=== PATIENT | female | born 1990 | race Caucasian/White ===

== ENCOUNTER 2017-01-03 05:49 | Emergency (ER) | payer MEDICAID, OTHER ==
[~2017-01-03] VITALS: Ht 167.6 cm; Wt 88.5 kg
[~2017-01-03 05:49] MED LIST: AMO500 PO; NITR-58 PO; PREN-29 PO
[2017-01-03 05:51] VITALS: Ht 167.6 cm; Wt 88.5 kg
[2017-01-03] MEDS ORDERED: HC1C30 TOP (06:26)
[2017-01-03] MEDS ORDERED: IBUP-1542 PO (06:26)
[2017-01-03] MEDS ORDERED: IBUPROFEN 800 MG TAB PO ONE (06:30)
--- NOTE | 2017-01-03 07:05 | RADRPT ---
PROCEDURE: XR Ankle. CLINICAL INDICATION: Right ankle pain. TECHNIQUE: Three views of the right ankle were performed. COMPARISON: None. FINDINGS: No acute fracture or dislocation is seen. The ankle mortise is symmetric. No radiopaque foreign body is identified. Mild soft tissue swelling is noted in the lateral aspect of the ankle. IMPRESSION: 1. No acute fracture or dislocation. 2. Mild soft tissue swelling is noted in the lateral aspect of the ankle. RPTAT: PP .Kris Polk MD, Date Time Electronically viewed and signed by .Kris Polk MD, on 01/03/2017 07:04 .N/
--- NOTE | 2017-01-03 08:00 | ERD ---
ER Documentation Chief Complaint Date/Time DATE: 01/03/17 TIME: 07:58 Chief Complaint twisted right ankle 2 days ago pain and swelling, rashes right arm HPI Patient is a 26-year-old female with no medical problems who presents with ankle pain. She says that she twisted her ankle on Monday. She had swelling which has improved but the ankle still swollen. She tried ibuprofen but was still having pain so she came to the emergency department. She also tried tightening her boot around the ankle. She also has a rash to her arms bilaterally which is itchy. She does not currently have a primary doctor. Upon review of old medical records the patient has 5 visits to the ER for various complaints. ROS All systems reviewed and are negative except as per history of present illness. Medications Home Meds Active Scripts Hydrocortisone* Topical (Hydrocortisone* Topical) 1%-28.35 Gm Cream..g., 1 APPLIC TOP Q6 Y for ITCHING, #1 TUB Prov:HUSSEIN ORTEGA MD 01/03/17 Ibuprofen* (Motrin*) 600 Mg Tab, 600 MG PO Q8, #30 TAB Prov:HUSSEIN ORTEGA MD 01/03/17 Amoxicillin* (Amoxicillin*) 500 Mg Cap, 500 MG PO BID for 7 Days, CAP Prov:BRENDA DAMON 01/26/15 Reported Medications Nitrofurantoin Monohyd Macrocr* (Macrobid*) 100 Mg Capsr, 100 MG PO BID, CAP 01/06/15 Vit-Fe Fumarate-FA* (Loc Tablet*) 1 Tab Tablet, 1 TAB PO DAILY, TAB 01/06/15 Allergies Allergies: Coded Allergies: No Known Allergy (Unverified , 10/17/14) PMhx/Soc Medical and Surgical Hx: pt denies Medical Hx History of Surgery: No (tonsillectomy) Anesthesia Reaction: No Hx Neurological Disorder: No Hx Respiratory Disorders: No Hx Cardiac Disorders: No Hx Psychiatric Problems: No Hx Miscellaneous Medical Probl: No Hx Alcohol Use: No Hx Substance Use: No Hx Tobacco Use: No Smoking Status: Never smoker FmHx Family History: diabetes Physical Exam Vitals Vital Signs Date Time Temp Pulse Resp B/P Pulse Ox O2 Delivery O2 Flow Rate FiO2 01/03/17 05:51 97.8 60 20 122/74 100 Physical Exam Const: No acute distress Head: Atraumatic Eyes: Normal Conjunctiva ENT: Normal External Ears, Nose and Mouth. Neck: Full range of motion..~ No meningismus. Resp: Clear to auscultation bilaterally Cardio: Regular rate and rhythm, no murmurs Abd: Soft, non tender, non distended. Normal bowel sounds Skin: Urticarial wheals to the arms bilaterally which blanches to palpation Back: No midline or flank tenderness Ext: Swelling over the right deltoid ligament of the ankle, no obvious deformity noted Neur: Awake and alert Psych: Normal Mood and Affect Results 24 hrs Current Medications Medications (Trade) Dose Ordered Sig/Rachana Route PRN Reason Start Time Stop Time Status Last Admin Dose Admin Ibuprofen (Motrin) 800 mg ONCE ONCE PO 01/03/17 06:30 01/03/17 06:31 DC 01/03/17 06:30 Procedures/MDM Ankle x-ray negative for fracture or dislocation per radiology. Splint Note Type: Silvino wrap Location: Right ankle Indication: Ankle sprain Splint Assessment: Neurovascularly intact post splint placement with good fit. Patient is a 26-year-old female who presents with right ankle swelling and pain. X-ray was negative for fracture or dislocation. The patient was given Silvino wrap as a believe she has an ankle sprain. The patient will be discharged home and can take ibuprofen as needed for pain and inflammation. She can return for any worsening symptoms. Departure Diagnosis: Primary Impression: Ankle sprain Encounter type: initial encounter Involved ligament of ankle: deltoid ligament Laterality: right Qualified Code: S93.421A - Sprain of deltoid ligament of right ankle, initial encounter Additional Impression: Rash Condition: Fair Patient Instructions: Treating Ankle Sprains, Self-Care for Skin Rashes Referrals: [facility] YOU HAVE RECEIVED A MEDICAL SCREENING EXAM AND THE RESULTS INDICATE THAT YOU DO NOT HAVE A CONDITION THAT REQUIRES URGENT TREATMENT IN THE EMERGENCY DEPARTMENT. FURTHER EVALUATION AND TREATMENT OF YOUR CONDITION CAN WAIT UNTIL YOU ARE SEEN IN YOUR DOCTORS OFFICE WITHIN THE NEXT 1-2 DAYS. IT IS YOUR RESPONSIBILITY TO MAKE AN APPOINTMENT FOR FOLOW-UP CARE. IF YOU HAVE A PRIMARY DOCTOR --you should call your primary doctor and schedule an appointment IF YOU DO NOT HAVE A PRIMARY DOCTOR YOU CAN CALL OUR PHYSICIAN REFERRAL HOTLINE AT IF YOU CAN NOT AFFORD TO SEE A PHYSICIAN YOU CAN CHOSE FROM THE FOLLOWING [facility] [address] [facility] [address] [facility] [address] [facility] [address] [facility] [address] [facility]. [facility]. [address] Additional Instructions: Call your primary care doctor TOMORROW for an appointment during the next 1-2 days.See the doctor sooner or return here if your condition worsens before your appointment time. HUSSEIN ORTEGA MD Jan 03, 2017 08:00
== END 2017-01-03 07:19 | disposition home or self-care (01) ==
LOC: FTE 05:49
DX: S93.421A Sprain of deltoid ligament of right ankle, initial encounter (principal); R21 Rash and other nonspecific skin eruption; X58.XXXA Exposure to other specified factors, initial encounter; Y92.9 Unspecified place or not applicable
CPT/HCPCS: 73610; Z7502; Z7610

== ENCOUNTER 2018-09-14 19:50 | Outpatient (CLI) | payer OTHER ==
[~2018-09-14] VITALS: Ht 160 cm; Wt 97.7 kg
[~2018-09-14 19:50] MED LIST changes: -AMO500 PO; +AMOX500C2 PO; +HC1C30 TOP; +IBUP-1542 PO
[2018-09-14 20:27] VITALS: BP 117/63; PULSE 74; RESP 16; Ht 160 cm; Wt 97.7 kg
--- NOTE | 2018-09-14 23:32 | TRIAGE ---
OB Triage Datetime Report Generated by CPN: 09/14/2018 23:32 Datetime: 09/14/2018 22:15 Contraction Comments: TOCO REMOVED PER MD ORDER Comments: US REMOVED PER MD ORDER Datetime: 09/14/2018 22:00 Labor Evaluation Frequency: NONE Monitor Mode: External Resting Tone [place]: Relaxed Heart Rate FHR Baseline Rate: 145 Monitor Mode: External US Variability: Moderate 6-25 bpm Accelerations: 15X15 Decelerations: None Category: Category I Comments: SOME LOSS OF CONTACT DUE TO GA AND PT LARGE BMI Datetime: 09/14/2018 20:59 Labor Evaluation Frequency: NONE Monitor Mode: External Resting Tone [place]: Relaxed Heart Rate FHR Baseline Rate: 145 Monitor Mode: External US Variability: Moderate 6-25 bpm Accelerations: 10X10 Decelerations: None Category: Category I Comments: SOME LOSS OF CONTACT DUE TO GA AND PT LARGE BMI Datetime: 09/14/2018 20:30 Stage of : OB Triage Assessment Type: Triage Maternal Assessment Level of Consciousness: Fully Conscious DTR's/Clonus: DTRs 2+; No Clonus Headache: Denies Blurred Vision: No Respiratory Effort: Unlabored; Regular Rhythm; Equal Expansion Breath Sounds, Left: Clear and Equal Breath Sounds, Right: Clear and Equal Nausea/Vomiting: Denies RUQ Epigastric Pain: Denies Lower Extremities Edema: None Degree: None Upper Extremities Edema: None Degree: None Facial Edema: None Temperature Route: Oral Fall Risk Assessment History of Falling: (0) No Secondary Diagnosis: (0) No Ambulatory Aid: (0) Bedrest/Nurse Assist IV Therapy: (0) No Gait: (0) Normal/Bedrest/Immobile Mental Status: (0) Oriented to Own Ability Fall Score: 0 Fall Risk Score Definition: No Risk: No action required Pain Assessment Pain Scale: 7 Pain Presence: Constant Pain Type: Pressure Pain Location: Abdomen Pain Goal: 3 Vaginal Exam Membrane Status: Intact Datetime: 09/14/2018 20:28 Time of Arrival: 09/14/2018 19:42 EGA: 27.0 Arrived By: Ambulatory Arrived From: Emergency Dept Chief Complaint: PT C/O PELVIC PAIN SINCE THIS AM AND POSSIBLE UTI Movement: Present Contractions: Denies/Absent Rupture of Membranes: Denies Vaginal Bleeding: None Vaginal Discharge: Denies Recent Sexual Intercouse: Denies Abdominal Trauma: Not Applicable Patient Complaints: Urinary Frequency; Pain on Urination; Other Initial Plan: EFM Datetime: 09/14/2018 20:09 Contraction Comments: TOCO APPLIED Comments: US APPLIED
--- NOTE | 2018-09-15 01:09 | PN ---
Triage Information Date/Time September 15, 2018 Reason for visit: Abd/pelvic pain Weeks of Gestation 27 weeks /Para 3 para 2 Diabetes: none Hypertention: none Additional information 28-year-old with IUP at 27 weeks presented with complaint of pelvic pressure and lower abdominal pain as well as some vaginal discharge. She also reports lower abdominal pain when she walks or moves or during sitting. She denies any vaginal bleeding or uterine contractions. Patient had a history of Objective Vital Signs Date Temp Pulse Resp B/P (MAP) Pulse Ox O2 O2 Flow FiO2 Time Delivery Rate 09/14/18 98.0 74 16 117/63 Room Air 20:27 (81) Heart Rate: 130's Heart Rate Comments Category 1 and appropriate for gestational age Contractions: None Exam General appearance: Alert and oriented x4 does not appear to be in any acute distress Abdomen: Soft, gravid, fundal height consider gestational age, no tenderness, no redness, no guarding, no rigidity Extremities: No calf tenderness, no click, 1+ bilateral symmetric edema External genitalia: Evidence of vulvar and labial varicosity more the left side than right. Speculum examination: Negative pooling, negative R OM. Cervix appears closed and long RN tests: Negative Results/Medications Result Diagram: 09/14/182112 Results 24 hrs Laboratory Tests Test 09/14/18 20:30 09/14/18 21:13 09/14/18 22:13 Urine Color YELLOW Urine Clarity CLOUDY A Urine pH 6.0 Urine Specific [place] 1.025 Urine Ketones NEGATIVE Urine Nitrite NEGATIVE Urine Bilirubin NEGATIVE Urine Urobilinogen NEGATIVE Urine Leukocyte Esterase 2+ H Urine Microscopic RBC 26 H Urine Microscopic WBC 9 H Urine Squamous Epithelial Cells FEW Urine Calcium Oxalate Crystals MODERATE Urine Bacteria FEW A Urine Mucus FEW A Urine Hemoglobin 1+ H Urine Glucose NEGATIVE Urine Total Protein NEGATIVE White Blood Count 9.0 Red Blood Count 4.27 Hemoglobin 12.0 Hematocrit 36.8 L Mean Corpuscular Volume 86.2 Mean Corpuscular Hemoglobin 28.1 L Mean Corpuscular Hemoglobin Concent 32.6 Red Cell Distribution Width 13.3 Platelet Count 268 Mean Platelet Volume 9.5 Immature Granulocytes % 0.700 H Neutrophils % 62.3 Lymphocytes % 26.2 Monocytes % 7.3 Eosinophils % 2.9 Basophils % 0.6 Nucleated Red Blood Cells % 0.0 Immature Granulocytes # 0.060 H Neutrophils # 5.6 Lymphocytes # 2.4 Monocytes # 0.7 Eosinophils # 0.3 Basophils # 0.1 Nucleated Red Blood Cells # 0.0 Membranes Rupture NEGATIVE Imaging Results PROCEDURE: US OB. CLINICAL INDICATION: labor TECHNIQUE: Pelvic ultrasound performed for biophysical profile. COMPARISON: No relevant exams available FINDINGS: Single intrauterine gestation present with heart rate at 142 beats per minute. Presentation is breech. Placenta is fundal, grade 1. Biophysical profile score is 8/8 (breathing=2, movement=2, tone =2, fluid volume=2). Amniotic fluid volume is within normal limits, with MVP = 10.7 cm. The closed cervix has a length of 3.1 cm RPTAT:LOAN IMPRESSION: Biophysical profile score 8/8. Closed cervical length measures 3.1 cm. Disposition: Discharge Assessment/Plan IUP at 27 weeks Lower abdominal pain and pelvic pressure, increased with moving and activity, symptoms consistent with musculoskeletal pain No evidence of PPROM or labor testing reassuring and appropriate for gestational age Patient advised to use abdominal binder and have intermittent rest UA questionable for UTI. Will treat with antibiotics. Macrobid Rx twice daily for 7 days provided to the patient Adequate hydration discussed with patient Urine was sent for culture and sensitivity Patient have a follow-up in 3 days in the office for the results and for follow- up with her primary OB office Strict labor precautions kick count adequate rest, hydration discussed with patient. Patient verbalized understanding. All questions were answered to patient's best satisfaction Advised to return to triage as needed any above symptoms or as needed JAMAL WRIGHT MD Sep 15, 2018 01:09
== END 2018-09-14 23:14 | disposition home or self-care (01) ==
LOC: OBT 19:50 → L-D 19:51 → OBT 23:14
PROVIDERS: ATTEND Obstetrics & Gynecology
DX: O26.892 Other specified pregnancy related conditions, second trimester (principal); Z3A.27 27 weeks gestation of pregnancy; R10.2 Pelvic and perineal pain
CPT/HCPCS: 76817; 76818; 81001; 84112; 85025; 87086; Z7500; G0463

== ENCOUNTER 2018-11-06 17:54 | Inpatient (IN) | payer OTHER ==
[~2018-11-06] VITALS: Ht 157.5 cm; Wt 98.3 kg
[~2018-11-06 17:54] MED LIST changes: -AMOX500C2 PO; -HC1C30 TOP; -IBUP-1542 PO
[2018-11-06 18:03] VITALS: Ht 157.5 cm; Wt 98.3 kg
--- NOTE | 2018-11-06 20:04 | HP ---
Date/Time of Note Date/Time of Note DATE: 11/06/18 TIME: 20:02 OB - History Hx of Present Chief Complaint: pelvic pain Estimated Due Date: Dec 14, 2018 : 3 Para: 2 Spontaneous : 0 Therapeutic : 0 Care: Good Care Ultrasounds: Normal mid trimester US Obstetrical Complications: Gestational Diabetes Medical Complications: None Past Family/Social History * Past Medical, Surgical, Family and Obstetric Histories reviewed from chart. GBS Status: Unknown OB Admission Exam Physical Exam HEENT: WNL Heart: Rhythm Normal Lungs: Clear, Equal Abdomen: WNL Extremities: Normal Reflexes: Normal Cervical Dilatation: 2cm Effacement: 75% Station: -1 Membranes: Intact Heart Rate: 120's Accelerations: Accelerations Present Decelerations: No Decelerations Varibility: Moderate Last 72 hours Lab Results CBC & BMP 11/06/18 19:23 OB Assessment/Plan Reason for admission: labor Plan: Other Other plan: IV magnesium sulfate IM betamethasone Sliding scale insulin coverage as needed WHITNEY RODRIGUEZ MD November 06, 2018 20:04
[2018-11-06] MEDS ORDERED: MAGNESIUM SULFATE 4 GM/100 ML 100 ML IV ONE (20:30)
[2018-11-06] MEDS: LACTATED RINGER'S 1,000 ML IV SCH (20:43)
[2018-11-06] MEDS: BETAMET NA PHOS/AC(6 MG/ML) 2 ML INJ SYG IM SCH (21:05)
[2018-11-06] MEDS: MAGNESIUM SULFATE 20 GM/500 ML 500 ML IV SCH (21:14)
[2018-11-07] MEDS ORDERED: GLUCOSE GEL 15 GRAM TUBE BUCCAL PRN (02:30)
[2018-11-07] MEDS ORDERED: DEXTROSE 50% 50 ML SYRINGE IV PRN ×2 (02:30)
[2018-11-07] MEDS ORDERED: GLUCOSE GEL 15 GRAM TUBE PO PRN ×2 (02:30)
[2018-11-07] MEDS: INSULIN ASPART [NOVOLOG] 3 ML PEN SC SCH ×3 (02:30→17:35)
[2018-11-07] MEDS ORDERED: GLUCAGON 1 MG INJ IM PRN (02:30)
[2018-11-07] MEDS: LACTATED RINGER'S 1,000 ML IV SCH ×2 (06:02→19:28)
[2018-11-07] MEDS: MAGNESIUM SULFATE 20 GM/500 ML 500 ML IV SCH ×2 (07:28→17:38)
[2018-11-07] MEDS: ACCU-CHEK XX SCH ×4 (08:06→21:50)
[2018-11-07] MEDS: PRENATAL VITAMIN PO SCH (09:11)
--- NOTE | 2018-11-07 09:44 | QN ---
Documentation Comment No complaint. Patient feels better. Afebrile VSS Strip Reactive Continue with present care. WHITNEY RODRIGUEZ MD November 07, 2018 09:44
[2018-11-07] MEDS: BETAMET NA PHOS/AC(6 MG/ML) 2 ML INJ SYG IM SCH (21:06)
[2018-11-08] MEDS: MAGNESIUM SULFATE 20 GM/500 ML 500 ML IV SCH ×3 (01:51→23:59)
[2018-11-08] MEDS: ACCU-CHEK XX SCH ×4 (06:10→23:56)
[2018-11-08] MEDS: PRENATAL VITAMIN PO SCH (09:45)
[2018-11-08] MEDS: LACTATED RINGER'S 1,000 ML IV SCH ×2 (09:46→21:51)
--- NOTE | 2018-11-08 12:46 | PN ---
DATE: 11/07/2018 The patient is 34 weeks and 5 days, presented with labor on magnesium sulfate currently, rece ived first dose of betamethasone, receiving the second dose today. Cervical length is between 2 to 3 cm digitally. She has GDM with diet control. My recommendation is to continue with the magnesium s ulfate 12 hours after the second dose of betamethasone, then stop and within few hours, check the cer vix. If there is no change, the patient can be discharged home with labor precautions. Dictated By: CARTER LUTHER MD ST/NTS Conf#: [id number] DID#: [id number] CC: WHITNEY RODRIGUEZ MD;*EndCC*
[2018-11-08] MEDS: INSULIN ASPART [NOVOLOG] 3 ML PEN SC SCH ×2 (19:56→20:02)
--- NOTE | 2018-11-08 22:20 | QN ---
Documentation Comment No complaint Afebrile VSS Strip Reactive D/C magnesium sulfate in AM. WHITNEY RODRIGUEZ MD November 08, 2018 22:20
--- NOTE | 2018-11-09 05:45 | CONS ---
DATE OF ADMISSION: 11/06/2018 DATE OF CONSULTATION: 11/08/2018 Prior to this, I saw the patient today. She is currently stable. Dictated By: CARTER LUTHER MD ST/NTS Conf#: [id number] DID#: [id number] CC: WHITNEY RODRIGUEZ MD;*End*
--- NOTE | 2018-11-09 06:58 | CONS ---
DATE OF ADMISSION: 11/06/2018 DATE OF CONSULTATION: 11/08/2018 HISTORY OF PRESENT ILLNESS: The patient is IUP at 34 weeks and 6 days, presented with complaint of a bdominal pain. Per Dr. Rodriguez, she is about 2 cm dilated, on magnesium sulfate, received the second dose of betamethasone. She is feeling less pressure overall and that was the reason she came in. H er OB history is significant for pre-term delivery at 31 weeks and her first baby was a full term. Vital signs are stable. Physical exam deferred. heart tones are reassuring, and some irritabi lity and occasional contractions. IMPRESSION: IUP at 34 weeks and 6 days with pre-term labor on magnesium sulfate and status post beta methasone. History of a pre-term delivery at 31 weeks. She is currently 2 cm dilated. RECOMMENDATIONS: I do recommend for the patient to be in-house managed at least until 36 weeks with magnesium and discontinue 24 hours after the second dose of betamethasone, then up to 36 weeks Procar rosa is an option if the blood pressures allow, 20 mg every 6 hours. Dictated By: CARTER LUTHER MD ST/NTS Conf#: [id number] DID#: [id number] CC: WHITNEY RODRIGUEZ MD;*End*
[2018-11-09] MEDS: INSULIN ASPART [NOVOLOG] 3 ML PEN SC SCH ×3 (07:35→17:35)
[2018-11-09] MEDS: ACCU-CHEK XX SCH ×4 (08:00→19:35)
[2018-11-09] MEDS: NIFEdipine 10 MG CAP PO SCH ×3 (08:20→19:27)
[2018-11-09] MEDS: PRENATAL VITAMIN PO SCH (08:21)
[2018-11-09] MEDS: LACTATED RINGER'S 1,000 ML IV SCH (11:22)
[2018-11-09] MEDS ORDERED: ACETAMINOPHEN 500 MG TAB PO STA (11:51)
--- NOTE | 2018-11-09 14:14 | QN ---
Documentation Comment No complaint Afebrile VSS Strip Reactive Cervix 2 cm, no cervical change D/C magnesium sulfate PO nifedipine WHITNEY RODRIGUEZ MD November 09, 2018 14:14
--- NOTE | 2018-11-09 19:45 | QN ---
Documentation Comment requested to do VE by her OB since RN VE is showing she seems to be in labor VE 2-3 50/-2 which is more likely comparable with Her OB A IUP 35w with x1 previous C/S r/o PTL on procardia Hx of PTB at 31w P expectant management JITENDRA BALDERAS MD November 09, 2018 19:45
[2018-11-10] MEDS: LACTATED RINGER'S 1,000 ML IV SCH (00:10)
[2018-11-10] MEDS: NIFEdipine 10 MG CAP PO SCH ×3 (01:52→14:56)
[2018-11-10] MEDS: INSULIN ASPART [NOVOLOG] 3 ML PEN SC SCH ×2 (07:35→11:30)
[2018-11-10] MEDS: ACCU-CHEK XX SCH ×3 (08:20→13:30)
[2018-11-10] MEDS: PRENATAL VITAMIN PO SCH (09:08)
--- NOTE | 2018-11-10 14:25 | DS ---
Date/Time of Note Date/Time of Note DATE: 11/10/18 TIME: 14:25 Obstetrical Discharge Record Final Diagnosis Final Diagnosis: not delivered Complications Gestational Diabetes Tocolytics: Magnesium Sulfate Condition on Discharge Physical Assessment Voiding: Yes Bowel Movement: Yes Calf Tenderness: No Patient Condition: Stable WHITNEY RODRIGUEZ MD November 10, 2018 14:25
== END 2018-11-10 15:05 | disposition home or self-care (01) | DRG 833 ==
LOC: OBT 17:54 → L-D 17:55 → OBT 19:54 → L-D 19:54
PROVIDERS: ADMIT Obstetrics & Gynecology; ATTEND Obstetrics & Gynecology
DX: O60.03 Preterm labor without delivery, third trimester (principal); O24.410 Gestational diabetes mellitus in pregnancy, diet controlled; O09.213 Supervision of pregnancy with history of pre-term labor, third trimester; Z3A.34 34 weeks gestation of pregnancy
CPT/HCPCS: 76815; 76818; 81001; 82947; 82962; 83735; 84112; 85025; 85610; 85730; 86592; 86850; 86900; 86901; 87086; G0463; J0702; J1815; J3475; J7120

== ENCOUNTER 2018-11-20 04:57 | Inpatient (IN) | payer OTHER ==
[~2018-11-20] VITALS: Ht 157.5 cm; Wt 98.4 kg
[~2018-11-20 04:57] MED LIST changes: -NITR-58 PO
[2018-11-20 05:04] VITALS: Ht 157.5 cm; Wt 98.4 kg
[2018-11-20] MEDS ORDERED: NIFE10CA PO (05:05)
[2018-11-20] MEDS ORDERED: LIDOCAINE 1% (MPF) 30 ML INJ ONE (05:24)
[2018-11-20] MEDS ORDERED: OXYTOCIN 30 UNITS/LR 1,000 ML IV ONE (05:24)
[2018-11-20] MEDS ORDERED: LACTATED RINGER'S 1,000 ML IV SCH (05:26)
[2018-11-20] MEDS ORDERED: AMPICILLIN 2 GM/NS (PMX) 100 ML ONE (05:28)
[2018-11-20] MEDS ORDERED: AMPICILLIN 2 GM/NS (PMX) 100 ML IV ONE (05:30)
[2018-11-20] MEDS ORDERED: METHYLERGONOVINE 0.2 MG INJ IM PRN ×2 (05:30→07:00)
[2018-11-20] MEDS ORDERED: CARBOPROST 250 MCG INJ IM PRN ×2 (05:30→07:00)
[2018-11-20] MEDS ORDERED: LIDOCAINE 1% (MPF) 30 ML INJ INJ PRN (05:30)
[2018-11-20] MEDS ORDERED: OXYTOCIN 30 UNITS/LR 500 ML IV SCH ×2 (05:30)
[2018-11-20] MEDS ORDERED: OXYTOCIN 30 UNITS/LR 500 ML IV PRN ×2 (05:30→07:00)
[2018-11-20] MEDS ORDERED: BUTORPHANOL 2 MG INJ IV PRN (05:30)
[2018-11-20] MEDS ORDERED: MISOPROSTOL 200 MCG TAB PR PRN ×2 (05:30→07:00)
--- NOTE | 2018-11-20 06:41 | LDN ---
Date/Time of Note Date/Time of Note DATE: 11/20/18 TIME: 06:38 Delivery Summary of a viable baby girl weighing 2780 grams or 6# 2 oz, and with Apgars of 9/9. Weeks of Gestation 36w 4d Placenta Delivered: Manually Meconium: none Episiotomy: No Perineal laceration: 1 Laceration repair: 1st degree perineal laceration repaired with 3-0 chromic. Anesthesia type: Local Estimated blood loss: 250 Sponge & Needle done & correct: Yes All needle counts correct: Yes Any foreign bodies felt in the: No (vagina) Delivery Information Sex Sex: female Apgars 1 Minute: 9 5 Minute: 9 Suctioning Nose & mouth suctioned at elvia: Yes Delee suction performed: No Umbilical Cord Umbilical cord with: 3 Vessels Cord presentations: no nuchal cord Cord Blood was obtained: Yes Mother & Baby Disposition Disposition Mom & Baby to Maternity; Good: Yes Baby to NICU: No HO JOSE MD November 20, 2018 06:41
[2018-11-20] MEDS: LACTATED RINGER'S 1,000 ML IV* SCH ×3 (06:50→21:39)
--- NOTE | 2018-11-20 06:50 | HP ---
Date/Time of Note Date/Time of Note DATE: 11/20/18 TIME: 06:41 OB - History Hx of Present Free Text/Dictation 28 y.o. with an IUP at 36w 4d and one prior and one prior vag inal delivery came in active labor at 9 cm, and delivered soon after. Estimated Due Date: Dec 14, 2018 : 3 Para: 2 Care: Good Care Ultrasounds: Normal mid trimester US Obstetrical Complications: Gestational Diabetes (diet controlled) Medical Complications: None Other Concerns: PMHx: none. PSHx: x 1. Tonsillectomy. POBHx: x 1 then a for breech at 31 weeks. NKDA. Past Family/Social History * Past Medical, Surgical, Family and Obstetric Histories reviewed from chart. Blood Type: O+ Rubella: immune RPR/VDRL: Negative GBS Status: Unknown HBsAG: Negative OB Admission Exam Vital Signs Vital Signs 123/70 T=98.6 Physical Exam HEENT: WNL Heart: Rhythm Normal Abdomen: WNL Extremities: Normal Reflexes: Normal Cervical Dilatation: 9cm Effacement: 100% Station: -2 Membranes: Intact Amniotic Fluid: Clear Heart Rate: 140's Accelerations: Accelerations Present Decelerations: No Decelerations Varibility: Moderate Contractions on Admission: < 5 Minutes Apart Intensity: Moderate Last 72 hours Lab Results CBC & BMP 11/20/18 05:33 OB Assessment/Plan Reason for admission: active labor Plan: Expectant Management HO JOSE MD November 20, 2018 06:50
[2018-11-20] MEDS ORDERED: LANOLIN HPA 1 PKT TOP PRN (07:00)
[2018-11-20] MEDS ORDERED: HYDROCODONE/APAP (5/325) TAB PO PRN (07:00)
[2018-11-20 08:25] VITALS: BP 121/71; PULSE 79; RESP 20
[2018-11-20] MEDS ORDERED: BENZOCAINE 20% 56 ML SPRAY TOP PRN (09:00)
[2018-11-20] MEDS ORDERED: WITCH HAZEL/GLYCERIN PAD PR PRN (09:00)
[2018-11-20] MEDS ORDERED: AMPICILLIN 1 GM/NS (PMX) 50 ML IV SCH (09:30)
[2018-11-20] MEDS: OXYTOCIN 30 UNITS/LR 500 ML IV SCH ×2 (09:48→16:50)
[2018-11-20] MEDS: IBUPROFEN 600 MG TAB PO SCH ×2 (12:00→18:24)
[2018-11-20 12:45] VITALS: BP 118/61; PULSE 82; RESP 18
[2018-11-20 16:13] VITALS: BP 116/64; PULSE 80; RESP 18
[2018-11-20 20:00] VITALS: BP 127/74; PULSE 87; RESP 18
[2018-11-21] MEDS: IBUPROFEN 600 MG TAB PO SCH ×4 (00:15→18:15)
[2018-11-21 04:00] VITALS: BP 115/61; PULSE 85; RESP 17
[2018-11-21] MEDS: LACTATED RINGER'S 1,000 ML IV* SCH (06:30)
[2018-11-21 08:30] VITALS: BP 122/55; PULSE 69; RESP 17
[2018-11-21 15:40] VITALS: BP 128/66; PULSE 83; RESP 17
--- NOTE | 2018-11-21 19:04 | DS ---
Date/Time of Note Date/Time of Note DATE: 11/21/18 TIME: 19:04 Obstetrical Discharge Record Final Diagnosis Final Diagnosis: delivered Vaginal Delivery Obstetrical Delivery: Successful Condition on Discharge Physical Assessment Voiding: Yes Bowel Movement: Yes Breast: Soft, non-tender, Filling Fundus: Firm Calf Tenderness: No Patient Condition: Stable WHITNEY RODRIGUEZ MD November 21, 2018 19:04
[2018-11-21 20:15] VITALS: BP 126/57; PULSE 85; RESP 18
[2018-11-21] MEDS ORDERED: PETROLATUM 5 GM OINT TOP ONE (21:27)
[2018-11-22] MEDS: IBUPROFEN 600 MG TAB PO SCH ×3 (00:01→11:36)
[2018-11-22 04:30] VITALS: BP 115/61; PULSE 85; RESP 17
[2018-11-22 08:05] VITALS: BP 115/70; PULSE 85; RESP 19
[2018-11-22] MEDS ORDERED: DIPHTH/TET/ACEL PERTUSS (ADULT) 0.5 ML VIAL IM* ONE (09:00)
--- NOTE | 2018-11-23 13:59 | DELSUM ---
Delivery Summary A-C Datetime Report Generated by CPN: 11/23/2018 13:59 DELIVERY PERSONNEL Draughtsman: Tru, Maria Del Carmen MATERNAL INFORMATION Delivery Anesthesia: None Medications in Delivery: PITOCIN Delivery QBL (ml): 250 Placenta Cultured: No Maternal Complications: None LABOR SUMMARY EDC: 12/14/2018 00:00 No. Babies in Womb: 1 Attempted: No Labor Anesthesia: None LABOR INFORMATION Onset of Labor: 11/06/2018 15:30 Complete Dilatation: 11/20/2018 05:30 Oxytocin: N/A Group B Beta Strep: N/A Antibiotics # of Doses: AMPICILLIN 2 GRAMS Antibiotics Time of Last Dose: 11/20/2018 05:30 Steroids Given: None Reason Steroids Not Administered: Not Applicable MEMBRANES Membranes Rupture Method: Artificial Rupture of Membranes: 11/20/2018 05:33 Length of Rupture (hr): 0.22 Amniotic Fluid Color: Clear Amniotic Fluid Amount: Moderate STAGES OF LABOR Stage 1 hr: 326 Stage 1 min: 0 Stage 2 hr: 0 Stage 2 min: 16 Stage 3 hr: 0 Stage 3 min: 41 Total Time in Labor hr: 326 Total Time in Labor min: 57 VAGINAL DELIVERY Episiotomy: None Laceration Extension: First Degree Laceration Type: Perineal Laceration Repair: Yes Initial Vag Sponge Count: 10 Final Vag Sponge Count: 10 Initial Vag Sharps Count: 2 Final Vag Sharps Count: 2 Sponge Count Correct: Yes Sharps Count Correct: Yes BABY A INFORMATION Delivery Date/Time: 11/20/2018 05:46 Method of Delivery: Vaginal Born in Route : No : N/A Forceps: N/A Vacuum Extraction: N/A Shoulder Dystocia : N/A SHOULDER DYSTOCIA BABY A Infant Delivery Date/Time: 11/20/2018 05:46 PRESENTATION/POSITION BABY A Presentation: Cephalic Cephalic Presentation: Vertex Breech Presentation: N/A PLACENTA INFORMATION BABY A Placenta Delivery Time : 11/20/2018 06:27 Placenta Method of Delivery: Spontaneous Placenta Status: Delivered SCORES BABY A Heart Rate 1 min: >100 bpm Resp Effort 1 min: Good Cry Reflex Irritability 1 min: Cough/Sneeze/Pulls Away Muscle Tone 1 min: Active Motion Color 1 min: Body Aucilla, Extremit Blue Resuscitation Effort 1 min: Tactile Stimulation SCORE 1 MIN: 9 Heart Rate 5 min: >100 bpm Resp Effort 5 min: Good Cry Reflex Irritability 5 min: Cough/Sneeze/Pulls Away Muscle Tone 5 min: Active Motion Color 5 min: Body Aucilla, Extremit Blue Resuscitation Effort 5 min: Tactile Stimulation SCORE 5 MIN: 9 INFORMATION BABY A Gestational Age at Delivery: 36.4 Gestational Status: Late - 34- 36.6 Weeks Infant Outcome : Liveborn Infant Condition : Stable Sex: Female IDENTIFICATION/MEDS BABY A ID Band Number: [id number] ID Band Location: Right Leg; Left Arm Sensor Applied: Yes Sensor Number: [id number] Sensor Location : Cord Clamp WEIGHT/LENGTH BABY A Birthweight (gm): 2780 Infant Weight (lb): 6 Weight (oz): 2 Infant Length (in): 19.00 Length (cm): 48.26 CORD INFORMATION BABY A No. Cord Vessels: 3 Nuchal Cord : N/A Cord Blood Taken: Yes Infant Suction: Mouth; Nose
== END 2018-11-22 13:05 | disposition home or self-care (01) | DRG 805 ==
LOC: OBT 04:57 → L-D 04:57 → OBT 05:13 → PP1 08:17
PROVIDERS: ADMIT Obstetrics & Gynecology; ATTEND Obstetrics & Gynecology
PROC: 10E0XZZ Delivery of Products of Conception, External Approach (ICD-10-PCS; principal; 2018-11-20)
PROC: 0HQ9XZZ Repair Perineum Skin, External Approach (ICD-10-PCS; 2018-11-20)
DX: O24.420 Gestational diabetes mellitus in childbirth, diet controlled (principal); O60.14X0 Preterm labor third trimester with preterm delivery third trimester, not applicable or unspecified; O34.211 Maternal care for low transverse scar from previous cesarean delivery; Z37.0 Single live birth; O70.0 First degree perineal laceration during delivery; Z3A.36 36 weeks gestation of pregnancy
CPT/HCPCS: 76815; 85025; 85610; 85730; 86592; 86850; 86900; 86901; 87340; G0463; J0290; J2590; J7120